=== PATIENT | male | born 1965 | race Caucasian/White ===

== ENCOUNTER → 2021-02-09 | Outpatient (CLI) | payer MEDICARE, OTHER ==
[~2021-02-09] MED LIST: AMOCLA875 PO; ASPI81CH PO; AZIT250 PO; BP MED PO; CEFD300 PO; CELE100 PO; CEPH500 PO; CIPR500 PO; CLOM50A PO; CRUTCH4 MISC; CYCL10 PO; HYDACE5 PO; LISI20 PO; MEDICAL MARIJUANA; MELO7.5 PO; METF500 PO; NAPR500 PO; NICO14TP TOP; Norco 10-325 T1 EACH PO; OLAN5; OXYACE5T PO; OXYC15ER PO; PARO20 PO; PIOG15 PO; POTCHL20ER PO; QUET100 PO; QUET200 PO; QUET25 PO; ROSU5 PO; RXCLIN PO; RXHYDACE PO; SILSUL1TC TOP; SITA50T2 PO; TELM20 PO; ZALE10; [UNRECOGNIZED DRUG - OTHER] PO; seroquel PO
== END | disposition home or self-care (01) ==
LOC: LAB SHORT 14:49 → LAB 14:49
DX: E11.9 Type 2 diabetes mellitus without complications (principal)
CPT/HCPCS: 82043

== ENCOUNTER → 2022-11-01 | Outpatient (CLI) | payer MEDICARE, OTHER ==
[2022-11-03 10:34] LABS: Stool Occult Bld Immuno 1 Negative (NEGATIVE)
== END | disposition home or self-care (01) ==
LOC: LAB SHORT 15:45
PROVIDERS: Student in an Organized Health Care Education/Training Program
DX: Z12.11 Encounter for screening for malignant neoplasm of colon (principal)
CPT/HCPCS: G0328

== ENCOUNTER → 2023-01-17 | Outpatient (CLI) | payer MEDICARE, OTHER | END | disposition home or self-care (01) | LOC: LAB SHORT 14:45 → LAB 14:45 | DX: L03.031 Cellulitis of right toe (principal) | CPT/HCPCS: 87070; 87075; 87106; 87205 ==

== ENCOUNTER 2023-02-13 08:09 | Day surgery (SDC) | payer MEDICARE, OTHER | END 2023-02-13 22:46 | disposition home or self-care (01) | LOC: WOUND 08:09 | DX: E11.621 Type 2 diabetes mellitus with foot ulcer (principal); L97.512 Non-pressure chronic ulcer of other part of right foot with fat layer exposed; E11.51 Type 2 diabetes mellitus with diabetic peripheral angiopathy without gangrene; E11.59 Type 2 diabetes mellitus with other circulatory complications; I10 Essential (primary) hypertension; E11.40 Type 2 diabetes mellitus with diabetic neuropathy, unspecified; Z88.0 Allergy status to penicillin; Z88.5 Allergy status to narcotic agent; Z87.891 Personal history of nicotine dependence | CPT/HCPCS: A9270; G0463 ==

== ENCOUNTER 2023-02-27 02:42 | Day surgery (SDC) | payer MEDICARE, OTHER | END 2023-02-27 22:48 | disposition home or self-care (01) | LOC: WOUND 02:42 | DX: E11.621 Type 2 diabetes mellitus with foot ulcer (principal); L97.512 Non-pressure chronic ulcer of other part of right foot with fat layer exposed; E11.51 Type 2 diabetes mellitus with diabetic peripheral angiopathy without gangrene; E11.59 Type 2 diabetes mellitus with other circulatory complications; E11.40 Type 2 diabetes mellitus with diabetic neuropathy, unspecified | CPT/HCPCS: A9270; G0463 ==

== ENCOUNTER 2023-03-06 02:49 | Day surgery (SDC) | payer MEDICARE, OTHER | END 2023-03-06 22:55 | disposition home or self-care (01) | LOC: WOUND 02:49 | DX: E11.621 Type 2 diabetes mellitus with foot ulcer (principal); L97.512 Non-pressure chronic ulcer of other part of right foot with fat layer exposed; E11.51 Type 2 diabetes mellitus with diabetic peripheral angiopathy without gangrene; E11.59 Type 2 diabetes mellitus with other circulatory complications; E11.40 Type 2 diabetes mellitus with diabetic neuropathy, unspecified | CPT/HCPCS: G0463 ==

== ENCOUNTER 2023-03-13 02:16 | Day surgery (SDC) | payer MEDICARE, OTHER | END 2023-03-13 22:46 | disposition home or self-care (01) | LOC: WOUND 02:16 | DX: E11.621 Type 2 diabetes mellitus with foot ulcer (principal); L97.512 Non-pressure chronic ulcer of other part of right foot with fat layer exposed; E11.51 Type 2 diabetes mellitus with diabetic peripheral angiopathy without gangrene | CPT/HCPCS: G0463 ==

== ENCOUNTER 2023-03-30 01:52 | Day surgery (SDC) | payer MEDICARE, OTHER | END 2023-03-30 22:57 | disposition home or self-care (01) | LOC: WOUND 01:52 | DX: E11.621 Type 2 diabetes mellitus with foot ulcer (principal); L97.512 Non-pressure chronic ulcer of other part of right foot with fat layer exposed; E11.51 Type 2 diabetes mellitus with diabetic peripheral angiopathy without gangrene; E11.59 Type 2 diabetes mellitus with other circulatory complications | CPT/HCPCS: G0463 ==

== ENCOUNTER 2023-04-11 00:41 | Day surgery (SDC) | payer MEDICARE, OTHER | END 2023-04-11 22:51 | disposition home or self-care (01) | LOC: WOUND 00:41 | DX: E11.621 Type 2 diabetes mellitus with foot ulcer (principal); L97.512 Non-pressure chronic ulcer of other part of right foot with fat layer exposed; E11.51 Type 2 diabetes mellitus with diabetic peripheral angiopathy without gangrene; E11.59 Type 2 diabetes mellitus with other circulatory complications | CPT/HCPCS: G0463 ==

== ENCOUNTER 2023-04-19 02:46 | Day surgery (SDC) | payer MEDICARE, OTHER | END 2023-04-19 23:30 | disposition home or self-care (01) | LOC: WOUND 02:46 | DX: E11.51 Type 2 diabetes mellitus with diabetic peripheral angiopathy without gangrene (principal); L98.492 Non-pressure chronic ulcer of skin of other sites with fat layer exposed; I70.25 Atherosclerosis of native arteries of other extremities with ulceration | CPT/HCPCS: A9270; G0463 ==

== ENCOUNTER 2023-05-03 03:39 | Day surgery (SDC) | payer MEDICARE, OTHER | END 2023-05-03 22:42 | disposition home or self-care (01) | LOC: WOUND | DX: E11.621 Type 2 diabetes mellitus with foot ulcer (principal); L97.512 Non-pressure chronic ulcer of other part of right foot with fat layer exposed; E11.51 Type 2 diabetes mellitus with diabetic peripheral angiopathy without gangrene; E11.59 Type 2 diabetes mellitus with other circulatory complications | CPT/HCPCS: G0463 ==

== ENCOUNTER 2023-08-01 02:11 | Day surgery (SDC) | payer MEDICARE, OTHER ==
[2023-08-02] MEDS ORDERED: METF500 PO (20:53)
[2023-08-02] MEDS ORDERED: ATOR40TA PO (20:53)
[2023-08-02] MEDS ORDERED: LISI20 PO (20:54)
[2023-08-02] MEDS ORDERED: Aspir 8181 MG PO (20:54)
[2023-08-02] MEDS ORDERED: GABA300 PO (20:55)
[2023-08-02] MEDS ORDERED: QUET300 PO (20:56)
[2023-08-02] MEDS ORDERED: CYCL10 PO (20:56)
== END 2023-08-01 23:00 | disposition home or self-care (01) ==
LOC: WOUND 02:11
DX: E11.621 Type 2 diabetes mellitus with foot ulcer (principal); L97.516 Non-pressure chronic ulcer of other part of right foot with bone involvement without evidence of necrosis; E11.51 Type 2 diabetes mellitus with diabetic peripheral angiopathy without gangrene; L97.512 Non-pressure chronic ulcer of other part of right foot with fat layer exposed; I73.9 Peripheral vascular disease, unspecified; M79.89 Other specified soft tissue disorders; I70.90 Unspecified atherosclerosis
CPT/HCPCS: 73630; A9270; G0463

== ENCOUNTER 2023-08-02 16:49 | Inpatient (IN) | payer MEDICARE, OTHER ==
[~2023-08-02] VITALS: Ht 170.2 cm; Wt 91.2 kg
[2023-08-02 18:06] LABS: BASOPHILS ABSOLUTE AUTO 0.08 K/mm3 (0.00-0.23); BASOPHILS PERCENT AUTO 1 % (0-2); EOSINOPHILS PERCENT AUTO 2 % (0-6); Hematocrit 36.7 % (37.0-53.0); Hemoglobin 12.1 g/dL (13.5-17.5); IMMATURE GRAN ABSOLUTE AUTO 0.06 K/mm3 (0.00-0.10); IMMATURE GRAN PERCENT AUTO 0 % (0-1); LYMPHOCYTES ABSOLUTE AUTO 2.43 K/mm3 (0.84-5.20); LYMPHOCYTES PERCENT AUTO 15 % (21-46); MONOCYTES ABSOLUTE AUTO 1.17 K/mm3 (0.16-1.47); MONOCYTES PERCENT AUTO 7 % (4-13); Mean Corpuscular HGB 29.8 pg (26.0-34.0); Mean Corpuscular Volume 90 fL (80-100); Mean Platelet Volume 9.9 fL (9.1-12.4); NEUTROPHILS ABSOLUTE AUTO 12.12 K/mm3 (1.96-9.15); NEUTROPHILS PERCENT AUTO 75 % (41-73); Platelet Count 364 K/mm3 (150-400); RDW Coefficient Variation 13.4 % (11.7-14.2); RDW Standard Deviation 44.9 fL (35.1-46.3); Red Blood Cell Count 4.06 M/mm3 (4.30-5.90); White Blood Cell Count 16.16 K/mm3 (4.00-11.30)
[2023-08-02 18:25] LABS: Albumin, Blood 2.6 g/dL (3.4-5.0); Albumin/Globulin Ratio 0.6 (0.8-1.8); Bilirubin, Total 0.3 mg/dL (0.1-1.0); Bun/Creatinine Ratio 13.6 (12.0-20.0); Calcium, Blood 8.7 mg/dL (8.5-10.1); Creatinine, Blood 1.62 mg/dL (0.60-1.20); Potassium, Blood 4.2 mmol/L (3.5-5.5); Total Protein, Blood 6.6 g/dL (6.4-8.2)
[2023-08-02] MEDS ORDERED: ATOR40TA PO (20:53)
[2023-08-02] MEDS ORDERED: METF500 PO (20:53)
[2023-08-02] MEDS ORDERED: Aspir 8181 MG PO (20:54)
[2023-08-02] MEDS ORDERED: LISI20 PO (20:54)
[2023-08-02] MEDS ORDERED: GABA300 PO (20:55)
[2023-08-02] MEDS ORDERED: CYCL10 PO (20:56)
[2023-08-02] MEDS ORDERED: QUET300 PO (20:56)
[2023-08-02 22:41] VITALS: BP 209/88
[2023-08-03] VITALS (16 sets, daily range): BP systolic 114–212; BP diastolic 70–100
--- NOTE | 2023-08-03 04:12 | NUR ---
SHIFT SUMMARY PT A&O X4, ADMITTED FROM THE ED DURING THE SHIFT. STARTED ON ABX-SEE EMAR. PT KEPT NPO, Q6 BS, LAST GLUCOSE 170 AT MIDNIGHT. PT REFUSED INSULIN ADMINISTRATION. PT BECAME NAUSEOUS ON WHEELCHAIR RIDE FROM THE ED. TREATED PER EMAR AND RESOLVED. PT COMPLAINTS OF PAIN IN THE RIGHT TOES/FOOT- TREATED PER EMAR. PHOTOS TAKEN OF NECROTIC TOE AND PLACED IN CHART. CURRENTLY INFUSING NS @75. PT REFUSES TO USE URINAL AND AMBULATES TO THE BATHROOM USING FFW. BED KEPT IN THE LOWEST POSITION WITH CALL LIGHT WITHIN REACH. PT DAUGHTER AT BEDSIDE
--- NOTE | 2023-08-03 15:07 | NUR ---
POST SURGICAL PROCEDURE; REPORT RECEIVED FROM RUDDY BARNARD. PT ARRIVED VIA GURNEY, AWAKE AND ALERT X 4. PT TRANSFERRED TO BED BY SLIDING FROM GURNEY TO BED. PT ABLE TO SLIDE HIMSELF. PT REPORTS "NO PAIN". PT STATES HE CAN FEEL GENTLE TOUCH TO HEEL AND EXPOSED TOES OF R FOOT. DRESSING IN PLACE IS CDI. PT EDUCATED ON WEIGHT BEARING STATUS, AND NEED TO ELEVATE LEG ABOVE HIP. END OF BED ELEVATED WITH UNDER BED BAR AND R LEG PROPPED ON PILLOWS. PT STATED HE WAS COMFORTABLE IN THIS POSITION. PT VU OF PRECAUTIONS IN PLACE. PT EDUCATED ON ADVANCING DIET SLOW. GAVE PT CRACKERS, ICE WATER AND GATORADE. PT URINATED IN URINAL WITH NO COMPLAINTS OF DIFFICULTY. PT VITALS TAKEN AND BP 212/87, HR 64. PT DENIES CP/PRESSURE/SOB. WILL RE-EVALUATE IN 30 MINUTES.
--- NOTE | 2023-08-03 17:46 | NUR ---
SHIFT SUMMARY: PT A/O X 4, PARTIAL WT BEARING TO R FOOT AT THIS TIME. PT IS PLEASANT WITH CARE. PT IS REFUSING INSULIN WHEN NEEDED. PT EDUCATED ON CONSEQUENCES OF HYPERGLYCEMIA. PT VU AND CONTINUED TO REFUSE INSULIN DESPITE EDUCATION STATING "I WON'T EVER TAKE INSULIN." REQUESTED PT TO LET ME KNOW IF HE CHANGES HIS MIND. PT HAS HAD ELEVATED SBP GREATER THAN 180'S. PT IS ASYMPTOMATIC. PRN HYDRALAZINE 10 MG GIVEN VIA IV WITH MINIMAL EFFECTIVENESS. PT STATED "MY BP AT HOME IS ALWAYS IN THE 190'S." DAUGHTER AT BEDSIDE CONFIRMED THIS. PT EDUCATED ON DANGERS OF HYPERTENSION. PT VU AND THEN STATED "I FEEL FINE." PT BEGAN FEELING THROBBING SENSATION IN R FOOT THIS EVENING AND PRN NORCO GIVEN FOR PAIN. R LEG ELEVATED ABOVE HIP ON PILLOWS PER ORDER. PT HAS BEEN COMPLIANT WITH KEEPING LEG ELEVATED. PT HAS NOT BEEN UP OOB YET SINCE HE CAME BACK FROM SURGERY. DRESSING CONTINUES TO BE CDI.
[2023-08-04 04:38] VITALS: BP 188/89
--- NOTE | 2023-08-04 04:47 | NUR ---
PATIENT A/OX4, UP WITH FWW AND 1 ASSIST. HEEL TOUCH WEIGHT BEARING PRECAUTIONS. R 2ND TOE AMUPTATION YESTERDAY, DRESSING REMAINS C/D/I. NEUROPATHY TO BLE. REPORTS ADEQUATE PAIN CONTROL WITH NORCO. NS INFUSING AT 75ML/HR. CBG 310 BEFORE BED, PATIENT REFUSING INSULIN. EDUCATED ABOUT THE IMPORTANCE OF GLUCOSE CONTROL FOR PROPER HEALING. B/P ELEVATED, HYDRALAZINE 10MG IV GIVEN X1 TO TREAT. PER PATIENT A SBP IN THE 180'S IS BASELINE FOR HIM. PATIENT PLEASANT AND ABLE TO MAKE NEEDS KNOWN. USING URINAL TO VOID. REPORTS RESTING WELL THROUGHOUT THIS SHIFT.
[2023-08-04 06:27] VITALS: BP 147/62
[2023-08-04 07:47] VITALS: BP 177/91
[2023-08-04 15:17] VITALS: BP 175/81
--- NOTE | 2023-08-04 16:13 | NUR ---
SHIFT SUMMARY Pt remains A&O X3. Right foot pain managed with PO meds. Right foot warm, drsg CDI. Voiding per urinal. Declines SS coverage, orders to give Metformin. Call light in reach. No needs id or verbalized at this time. Will continue to monitor this shift.
[2023-08-04 20:13] VITALS: BP 180/91
[2023-08-04 20:22] LABS: Creatinine, Blood 1.51 mg/dL (0.60-1.20); Vancomycin, Trough 21.6 ug/mL (5.0-10.0)
[2023-08-04 23:35] VITALS: BP 180/82
[2023-08-05] VITALS (7 sets, daily range): BP systolic 165–200; BP diastolic 76–103
--- NOTE | 2023-08-05 03:46 | NUR ---
SETTER MOLDING AND COREMAKING MACHINES SUMMARY BP ELEVATED, OTHERWISE VSS. RECEIVED ANTIHYPERTENSIVE PRN MED, WILL CONTINUE TO MONITOR IT. DRESSING OF RIGHT FOOT/TOE INTACT. NO NOTED DRAINAGE. RIGHT FOOT ELEVATED ON PILLOW. IV ANTIBIOTICS AND IVF INFUSING PER ORDERS, PAIN MEDS ADMIN FOR DISCOMFORT - SEE MAR FOR DETAILS. HAS BEEN RESING QUIETLY WITH FEW INTERRUPTIONS. WILL CONTINUE TO MONITOR. CALL LIGHT IN REACH.
--- NOTE | 2023-08-05 10:34 | NUR ---
Pt up to the bathroom to wash up with lens molder. C/O nausea, diaphoretic, dizzy. Ast back to bed. SBP 200. BS 210. Cool cloth given. Denies chest pain or any other sx. Dizziness, diaphoresis subsiding. Recheck sbp 194. Dr. Valente made aware.
[2023-08-05 12:42] LABS: Hematocrit 37.6 % (37.0-53.0); Hemoglobin 12.2 g/dL (13.5-17.5)
[2023-08-05 13:01] LABS: Bun/Creatinine Ratio 10.8 (12.0-20.0); Calcium, Blood 8.3 mg/dL (8.5-10.1); Creatinine, Blood 1.57 mg/dL (0.60-1.20); Potassium, Blood 3.3 mmol/L (3.5-5.5)
--- NOTE | 2023-08-05 16:21 | NUR ---
SHIFT SUMMARY: Pt remains A&OX3 this shift. BP remains elevated, new po Norvasc given this am along with IV Hydralazine. SR/ST on monitor. Resp even nonlabored on RA. Voiding per urinal. No further episodes of dizziness, diaphoresis. Pt remained in bed rest of shift. Will continue to monitor this shift.
--- NOTE | 2023-08-06 03:38 | NUR ---
SHIFT SUMMARY PT A&O X4, COOPERATIVE WITH CARE. PT IS POST OP FROM A RT 2ND DIGIT SURGICAL AMPUTATION. RT FOOT IS ELEVATED ABOVE THE HIPS ON A PILLOW PER DR ORDER. PT IS 50% WEIGHT BEARING HEEL TOUCH ON RIGHT FOOT. DID NOT GET OOB DURING THIS SHIFT. DRESSING IS C/D/I. NO NOTED DRAINAGE. PT REPORTS PAIN IN RIGHT FOOT/TOES-TREATED PER EMAR. TELEMETRY: SR @75, DENIES ANY CP OR PRESSURE. BS AT HS 203. CALL LIGHT WITHIN REACH AND BED KEPT IN THE LOWEST POSITION. PT CALLS APPROPRIATELY FOR NEEDS.
[2023-08-06 03:58] VITALS: BP 175/84
[2023-08-06 06:09] LABS: Calcium, Blood 8.2 mg/dL (8.5-10.1); Creatinine, Blood 1.54 mg/dL (0.60-1.20); Potassium, Blood 3.6 mmol/L (3.5-5.5)
[2023-08-06 07:58] VITALS: BP 189/85
[2023-08-06] MEDS ORDERED: Norco 5-325 Ta1 EACH PO (13:27)
[2023-08-06] MEDS ORDERED: AMLO10 PO (13:27)
[2023-08-06] MEDS ORDERED: DOXY100 PO (13:28)
--- NOTE | 2023-08-06 15:11 | NUR ---
DISCHARGE PT DISCHARGED AT 1503. PT EDUCATED ON FOLLOW UP INSTRUCTIONS, NEW MEDS, AND DM2 MANAGEMENT. PT STATES HE UNDERSTANDS AND REQUIRED NO FURTHER INSTRUCTION. IV REMOVED & INTACT. NO OTHER ACUTE CHANGES IN ASSESSMENT AT THIS TIME. PT WHEELED OUT BY CHAYO. HARD SCRIPTS IN DC PACKET.
== END 2023-08-06 15:05 | disposition home health service (06) | DRG 617 ==
LOC: ER 16:49 → MEDS 21:37
PROVIDERS: Internal Medicine; Nurse Practitioner Acute Care; Physician Assistant; Podiatrist; ADMIT Internal Medicine
PROC: 0Y6R0Z1 Detachment at Right 2nd Toe, High, Open Approach (ICD-10-PCS; principal; 2023-08-03 11:45)
DX: E11.69 Type 2 diabetes mellitus with other specified complication (principal); E11.52 Type 2 diabetes mellitus with diabetic peripheral angiopathy with gangrene; I96 Gangrene, not elsewhere classified; M86.171 Other acute osteomyelitis, right ankle and foot; L03.115 Cellulitis of right lower limb; E11.621 Type 2 diabetes mellitus with foot ulcer; F31.9 Bipolar disorder, unspecified; E11.22 Type 2 diabetes mellitus with diabetic chronic kidney disease; F25.9 Schizoaffective disorder, unspecified; E11.42 Type 2 diabetes mellitus with diabetic polyneuropathy; N18.30 Chronic kidney disease, stage 3 unspecified; L97.514 Non-pressure chronic ulcer of other part of right foot with necrosis of bone; F15.11 Other stimulant abuse, in remission; I12.9 Hypertensive chronic kidney disease with stage 1 through stage 4 chronic kidney disease, or unspecified chronic kidney disease; Z98.890 Other specified postprocedural states; Z88.5 Allergy status to narcotic agent; Z88.0 Allergy status to penicillin; Z79.82 Long term (current) use of aspirin; Z79.84 Long term (current) use of oral hypoglycemic drugs; Z79.811 Long term (current) use of aromatase inhibitors; Z79.899 Other long term (current) drug therapy; Z87.891 Personal history of nicotine dependence
CPT/HCPCS: 36415; 73660; 80048; 80053; 80202; 82565; 82947; 85014; 85018; 85025; 87040; 88305; 88311; 93005; 93010; 93971; 96374; 96375; 97110; 97116; 97161; 97165; 97530; 99284-25; A9270; J0360; J0696; J1100; J1644; J1650; J2001; J2250; J2270; J2405; J2704; J3010; J3370; J7030; J7050; J7120

== ENCOUNTER 2023-10-11 09:03 | Day surgery (SDC) | payer MEDICARE, OTHER ==
[~2023-10-11] VITALS: Ht 170.2 cm; Wt 93.7 kg
[2023-10-11] VITALS (10 sets, daily range): BP systolic 89–189; BP diastolic 45–153
[~2023-10-11 09:03] MED LIST changes: +AMLO10 PO; +ATOR40TA PO; +Aspir 8181 MG PO; +DOXY100 PO; +GABA300 PO; +Norco 5-325 Ta1 EACH PO; +QUET300 PO
[2023-10-11] MEDS ORDERED: TIZA4 PO (09:31)
[2023-10-11] MEDS ORDERED: MELO7.5 PO (09:32)
--- NOTE | 2023-10-11 13:14 | NUR ---
Pt arrives back from lab at this time. Access to Right groin wnl, pt vss upon arrival to unit. bed tilted to allow pt to remain supine, fluids and lunch tray provided with assistance.
--- NOTE | 2023-10-11 13:46 | NUR ---
lissette pyle to call pt's family to schedule follow-up appointment. pt aware.
--- NOTE | 2023-10-11 14:22 | NUR ---
no bleeding noted to femoral site. site soft and mildly tender per pt.
--- NOTE | 2023-10-11 14:35 | NUR ---
pt boosted up in bed and bed sat up. site soft and no bleeding noted.
--- NOTE | 2023-10-11 15:00 | NUR ---
PT ASSISTED TO DANGLE AT BEDSIDE. TOLERATED WELL, PT ABLE TO AMBULATE TO THE BATHROOM WITH OUT DIFFICULTY. GROIN SITE WNL, NO ACUTE CHANGES, NO HEMATOMA AND NO SWELLING AT THIS TIME. PT. IV REMOVED, CATHETER INTACT, PT ABLE TO GET SELF DRESSED. VSS. GROIN SITE ASSESSED AFTER PT WAS DRESSED AND REMAINS WNL. PLANS FOR DC WITH DAUGHTER.
--- NOTE | 2023-10-11 15:38 | NUR ---
DISCHARGE INSTRUCTIONS REVIEWED IN DETAIL WITH PT. NO FURTHER QUESTIONS AT THIS TIME. PT CONSENTED FOR PROCEDURE ON 10/25/[address] MCCRARY. PT. TO BE TAKEN TO EXIT VIA WHEELCHAIR, PT DAUGHTER TO TAKE PT HOME.
== END 2023-10-11 15:50 | disposition home or self-care (01) ==
LOC: MHTC 09:03
DX: E11.51 Type 2 diabetes mellitus with diabetic peripheral angiopathy without gangrene (principal); I70.223 Atherosclerosis of native arteries of extremities with rest pain, bilateral legs; E11.621 Type 2 diabetes mellitus with foot ulcer; L97.512 Non-pressure chronic ulcer of other part of right foot with fat layer exposed; I10 Essential (primary) hypertension; Z87.891 Personal history of nicotine dependence; Z88.5 Allergy status to narcotic agent; Z88.0 Allergy status to penicillin; Z88.8 Allergy status to other drugs, medicaments and biological substances; Z79.84 Long term (current) use of oral hypoglycemic drugs; Z79.899 Other long term (current) drug therapy
CPT/HCPCS: 37232; 75625; 75716; 75774; 76937; 85347; 99152; 99153; C1725; C1760; C1769; C1887; C1894; C9772; J1644; J2250; J3010; J7030; J7050; Q9967

== ENCOUNTER 2023-10-25 09:00 | Day surgery (SDC) | payer MEDICARE, OTHER ==
[2023-10-25] VITALS (11 sets, daily range): BP systolic 123–190; BP diastolic 76–161
[~2023-10-25] VITALS: Ht 170.2 cm; Wt 93.7 kg
[~2023-10-25 09:00] MED LIST changes: +Januvia50 MG PO; +TIZA4 PO
--- NOTE | 2023-10-25 14:15 | NUR ---
1300 FENTANYL 50 MCG IV GIVEN FOR RIGHT GROIN DISCOMFPRT. FEMSTOP APPLIED FOR ENLARGED HEMATOMA AT THE RIGHT GROIN. MANUAL PRESSURE WAS HELD FOR 15 MINUTES BY MARISA LIRIANO RN WITH EXTREME PAIN TO THE PATIENT. NO PULSITILE NOTED. BUT LARGE BASEBALL SIZE AREA NOTED BELOW THE STICK SITE. CHG DRESSING REMAINS IN PLACE, NO BLEEDING NOTED FROM THE SITE.
--- NOTE | 2023-10-25 14:20 | NUR ---
1336 FENTANYL 50 MCG IV GIVEN FOR CONTINUED PAIN AT THE RIGHT GROIN SITE. FEMSTOP READJUSTED. PATIENT TOLERATED WELL.
--- NOTE | 2023-10-25 15:45 | NUR ---
1445 FEMSTOP REMOVED AND RIGHT GROIN SITE SOFT. DR. MCCRARY UPDATED AND CLEARED PATIENT FOR DISCHARGED HOME WITH FOLLOW UP IN THE OFFICE.
--- NOTE | 2023-10-25 15:52 | NUR ---
1510 PIV REMOVED, CATH TIP INTACT AND PRESSURE DRESSING APPLIED TO THE RIGHT HAND. VVS. PATIENT DRESSED SELF. ALL BELONGINGS GATHERED AND REVEIWED DISCHARGE INSTRUCTIONS. COPIES GIVEN TO PATIENT.
--- NOTE | 2023-10-25 16:07 | NUR ---
1605 PATIENT DISCHARGE HOME VIA WHEELCHAIR TO CAR WITH DAUGHTER TOUCH UP PAINTER HAND.
== END 2023-10-25 16:16 | disposition home or self-care (01) ==
LOC: MHTC 09:00
DX: E11.51 Type 2 diabetes mellitus with diabetic peripheral angiopathy without gangrene (principal); I70.223 Atherosclerosis of native arteries of extremities with rest pain, bilateral legs; E11.621 Type 2 diabetes mellitus with foot ulcer; L97.512 Non-pressure chronic ulcer of other part of right foot with fat layer exposed; I10 Essential (primary) hypertension; Z87.891 Personal history of nicotine dependence; Z88.5 Allergy status to narcotic agent; Z88.0 Allergy status to penicillin; Z88.8 Allergy status to other drugs, medicaments and biological substances; Z79.82 Long term (current) use of aspirin; Z79.84 Long term (current) use of oral hypoglycemic drugs; Z79.899 Other long term (current) drug therapy
CPT/HCPCS: 37224; 37228; 37232; 75625; 75716; 75774; 76937; 99152; 99153; C1725; C1760; C1769; C1887; C1894; J1644; J2250; J3010; J7030; J7050; Q9967

== ENCOUNTER 2023-11-09 13:29 | Inpatient (IN) | payer MEDICARE, OTHER ==
[~2023-11-09] VITALS: Ht 167.6 cm; Wt 82.1 kg
[2023-11-09 13:59] LABS: BASOPHILS ABSOLUTE AUTO 0.06 K/mm3 (0.00-0.23); BASOPHILS PERCENT AUTO 0 % (0-2); EOSINOPHILS ABSOLUTE AUTO 0.03 K/mm3 (0.00-0.68); EOSINOPHILS PERCENT AUTO 0 % (0-6); Hematocrit 35.8 % (37.0-53.0); Hemoglobin 11.3 g/dL (13.5-17.5); IMMATURE GRAN ABSOLUTE AUTO 0.09 K/mm3 (0.00-0.10); IMMATURE GRAN PERCENT AUTO 1 % (0-1); LYMPHOCYTES ABSOLUTE AUTO 2.39 K/mm3 (0.84-5.20); LYMPHOCYTES PERCENT AUTO 13 % (21-46); MONOCYTES ABSOLUTE AUTO 0.79 K/mm3 (0.16-1.47); MONOCYTES PERCENT AUTO 4 % (4-13); Mean Corpuscular HGB Conc 31.6 g/dL (31.5-36.5); Mean Corpuscular Volume 98 fL (80-100); Mean Platelet Volume 10.4 fL (9.1-12.4); NEUTROPHILS ABSOLUTE AUTO 15.45 K/mm3 (1.96-9.15); NEUTROPHILS PERCENT AUTO 82 % (41-73); NRBC ABSOLUTE 0.02 K/mm3 (0.00-0.02); NRBC Auto 0.1 /100 WBC (0.0-0.2); Platelet Count 380 K/mm3 (150-400); RDW Coefficient Variation 17.1 % (11.7-14.2); RDW Standard Deviation 61.8 fL (35.1-46.3); Red Blood Cell Count 3.65 M/mm3 (4.30-5.90); White Blood Cell Count 18.81 K/mm3 (4.00-11.30)
[2023-11-09 14:18] LABS: Alanine Aminotransfer (ALT/SGP 18 U/L (12-78); Albumin/Globulin Ratio 0.9 (0.8-1.8); Alk Phos 58 U/L (50-136); Anion Gap 7 mmol/L (6-16); Aspartate Aminotrans (AST/SGOT 17 U/L (12-37); Bilirubin, Total 0.5 mg/dL (0.1-1.0); Blood Urea Nitrogen 63 mg/dL (8-24); Bun/Creatinine Ratio 28.1 (12.0-20.0); C-REACTIVE PROTEIN, EXT RANGE <0.290 mg/dL (0.000-0.300); CO2, Blood 17 mmol/L (21-32); Calcium, Blood 8.8 mg/dL (8.5-10.1); Chloride, Blood 116 mmol/L (98-108); Creatinine, Blood 2.24 mg/dL (0.60-1.20); Globulin, Blood 3.4 g/dL (2.2-4.0); Glomerular Filtration Rate 33 (60-); Glucose, Blood 233 mg/dL (70-99); Potassium, Blood 5.8 mmol/L (3.5-5.5); Sodium, Blood 140 mmol/L (136-145); Total Protein, Blood 6.4 g/dL (6.4-8.2)
[2023-11-09 18:08] VITALS: BP 148/76
--- NOTE | 2023-11-09 18:49 | NUR ---
ER ADMIT Patient admitted for diabetic ulcer infection and LAKEISHA. Right foot, middle toe previsouly amputated, toes painted with betadine, wrapped with guaze, and CHUCK wrap. Med rec complete. Pt has amputation planned for sunday with Dr. Gao. IV ABX infusing. CBG at 1800 was 102. No SSI needed. VSS. Will continue plan of care.
--- NOTE | 2023-11-09 19:05 | NUR ---
DECLINED SKIN CHECK. RN explained [facility] policy and 2-RN skin check on admission. Patient reported he has a bruise on his right groin r/t recent angiogram. Right foot wrapped with guaze, s/p amputation of II toe on right foot. Toe III has ulcer with eschar, and eschar on toe V. Left foot, CDI, no abnormalities noted. Patient declined to look at his body to do a skin check, denied any other skin issues.
[2023-11-09 19:42] VITALS: BP 128/79
--- NOTE | 2023-11-10 03:21 | NUR ---
SHIFT SUMMERY, PT RESTING IN BED. PT EARLIER THIS NIGHT C/O TIFFANY COLD WARM BLANKETS FROM WARMER APPLYED. PT STILL C/O BEING VERY COLD. K PAD GIVEN TO PT . PT STATED HE WAS WARM AT THIS TIME. PT SEEMED TO BE SLEEPING ON AND OFF OCCASIONALY WAKING THEN GOING BACK TO SLEEP. CALL LIGHT IN REACH.
[2023-11-10 04:53] VITALS: BP 135/76
[2023-11-10 05:55] LABS: BASOPHILS ABSOLUTE AUTO 0.08 K/mm3 (0.00-0.23); BASOPHILS PERCENT AUTO 1 % (0-2); EOSINOPHILS ABSOLUTE AUTO 0.11 K/mm3 (0.00-0.68); EOSINOPHILS PERCENT AUTO 1 % (0-6); Hematocrit 31.1 % (37.0-53.0); Hemoglobin 9.8 g/dL (13.5-17.5); IMMATURE GRAN ABSOLUTE AUTO 0.05 K/mm3 (0.00-0.10); IMMATURE GRAN PERCENT AUTO 0 % (0-1); LYMPHOCYTES ABSOLUTE AUTO 2.66 K/mm3 (0.84-5.20); LYMPHOCYTES PERCENT AUTO 19 % (21-46); MONOCYTES ABSOLUTE AUTO 0.94 K/mm3 (0.16-1.47); MONOCYTES PERCENT AUTO 7 % (4-13); Mean Corpuscular HGB 30.3 pg (26.0-34.0); Mean Corpuscular HGB Conc 31.5 g/dL (31.5-36.5); Mean Corpuscular Volume 96 fL (80-100); Mean Platelet Volume 10.6 fL (9.1-12.4); NEUTROPHILS ABSOLUTE AUTO 10.14 K/mm3 (1.96-9.15); NEUTROPHILS PERCENT AUTO 73 % (41-73); Platelet Count 313 K/mm3 (150-400); RDW Coefficient Variation 17.1 % (11.7-14.2); RDW Standard Deviation 61.1 fL (35.1-46.3); Red Blood Cell Count 3.23 M/mm3 (4.30-5.90); White Blood Cell Count 13.98 K/mm3 (4.00-11.30)
[2023-11-10 06:17] LABS: Albumin, Blood 2.5 g/dL (3.4-5.0); Albumin/Globulin Ratio 0.9 (0.8-1.8); Bilirubin, Total 0.3 mg/dL (0.1-1.0); Bun/Creatinine Ratio 28.1 (12.0-20.0); Calcium, Blood 8.2 mg/dL (8.5-10.1); Creatinine, Blood 1.96 mg/dL (0.60-1.20); Globulin, Blood 2.8 g/dL (2.2-4.0); Potassium, Blood 5.4 mmol/L (3.5-5.5); Total Protein, Blood 5.3 g/dL (6.4-8.2)
[2023-11-10 07:56] VITALS: BP 145/78
[2023-11-10 15:49] VITALS: BP 145/90
--- NOTE | 2023-11-10 17:24 | NUR ---
DAYSHIFT SUMMARY Patient alert & oriented x4, patient reporting severe pain in right foot, tender to the touch. Foot wrapped with guaze & CHUCK wrap, dressed in ER. Patient stand pivot to BSC. CBGs WNL, no Humalin SSI needed. Vitals stable. Normal Saline infusing continously. Plan for surgery on sunday. Will continue plan of care.
[2023-11-10 19:35] VITALS: BP 136/79
[2023-11-11 03:19] VITALS: BP 128/77
[2023-11-11 05:51] LABS: BASOPHILS ABSOLUTE AUTO 0.06 K/mm3 (0.00-0.23); BASOPHILS PERCENT AUTO 0 % (0-2); EOSINOPHILS ABSOLUTE AUTO 0.04 K/mm3 (0.00-0.68); EOSINOPHILS PERCENT AUTO 0 % (0-6); Hematocrit 31.8 % (37.0-53.0); Hemoglobin 10.2 g/dL (13.5-17.5); IMMATURE GRAN ABSOLUTE AUTO 0.05 K/mm3 (0.00-0.10); IMMATURE GRAN PERCENT AUTO 0 % (0-1); LYMPHOCYTES ABSOLUTE AUTO 2.25 K/mm3 (0.84-5.20); LYMPHOCYTES PERCENT AUTO 17 % (21-46); MONOCYTES ABSOLUTE AUTO 0.97 K/mm3 (0.16-1.47); MONOCYTES PERCENT AUTO 7 % (4-13); Mean Corpuscular HGB 30.9 pg (26.0-34.0); Mean Corpuscular HGB Conc 32.1 g/dL (31.5-36.5); Mean Corpuscular Volume 96 fL (80-100); Mean Platelet Volume 10.6 fL (9.1-12.4); NEUTROPHILS PERCENT AUTO 75 % (41-73); Platelet Count 297 K/mm3 (150-400); RDW Coefficient Variation 17.2 % (11.7-14.2); RDW Standard Deviation 60.9 fL (35.1-46.3); White Blood Cell Count 13.67 K/mm3 (4.00-11.30)
[2023-11-11 06:21] LABS: Bun/Creatinine Ratio 22.2 (12.0-20.0); Calcium, Blood 8.4 mg/dL (8.5-10.1); Creatinine, Blood 1.85 mg/dL (0.60-1.20); Potassium, Blood 5.5 mmol/L (3.5-5.5)
[2023-11-11 07:18] VITALS: BP 132/79
--- NOTE | 2023-11-11 07:20 | NUR ---
SHIFT SUMMARY NOC PT A/O X 4. PLEASANT AND COOPERATIVE WITH CARE. REPORTED SEVERE PAIN IN R FOOT AND MEDICATED PER EMAR WITH DESIRED EFFECT. PT R FOOT IS WRAPPED IN GAUZE AND CHUCK WRAP. PT IS ABLE TO INDEPENDENTLY STAND PIVOT TO BSC. PT CBG 151 AND CNI. VSS. CONTINUOS INFUSION NS @ 75 ML/HR. PT HAS SURGERY SCHEDULED FOR SUNDAY FOR TRANSMETARSAL AMPUTATION. PT IS CURRENTLY RESTING WITH BED IN LOWEST POSITION, AND CALL LIGHT WITHIN REACH.
[2023-11-11 15:19] VITALS: BP 141/81
[2023-11-11 19:18] VITALS: BP 160/96
--- NOTE | 2023-11-11 20:06 | NUR ---
SHIFT SUMMARY: ARACELIS IS A&OX4. VSS, BP ELEVATED TOWARD THE END OF THE SHIFT SHORTLY AFTER PT HAD AN EPISODE OF EMESIS. PT REPORTS ADEQUATE PAIN CONTROL WITH 5 MG OF OXYCODONE. HE DID COMPLAIN OF NAUSEA EARLY IN THE SHIFT, BUT PT REPORTED IMPROVEMENT AFTER ADMINISTRATION OF SODIUM BICARB. PT IS INDEPENDENT TO THE BSC. DRESSING TO RIGHT FOOT C/D&I. IV TO L WRIST PATENT. HE IS LYING IN BED WITH THE CALL LIGHT IN REACH. REPORT WAS GIVEN TO ETCHER APPRENTICE RN.
[2023-11-12 04:25] VITALS: BP 149/106
[2023-11-12 05:05] LABS: BASOPHILS ABSOLUTE AUTO 0.06 K/mm3 (0.00-0.23); BASOPHILS PERCENT AUTO 0 % (0-2); EOSINOPHILS ABSOLUTE AUTO 0.03 K/mm3 (0.00-0.68); EOSINOPHILS PERCENT AUTO 0 % (0-6); Hematocrit 32.4 % (37.0-53.0); Hemoglobin 10.7 g/dL (13.5-17.5); IMMATURE GRAN ABSOLUTE AUTO 0.07 K/mm3 (0.00-0.10); IMMATURE GRAN PERCENT AUTO 1 % (0-1); LYMPHOCYTES ABSOLUTE AUTO 2.41 K/mm3 (0.84-5.20); LYMPHOCYTES PERCENT AUTO 16 % (21-46); MONOCYTES PERCENT AUTO 8 % (4-13); Mean Corpuscular HGB 31.1 pg (26.0-34.0); Mean Corpuscular Volume 94 fL (80-100); Mean Platelet Volume 10.6 fL (9.1-12.4); NEUTROPHILS ABSOLUTE AUTO 11.08 K/mm3 (1.96-9.15); NEUTROPHILS PERCENT AUTO 75 % (41-73); Platelet Count 291 K/mm3 (150-400); RDW Coefficient Variation 16.9 % (11.7-14.2); RDW Standard Deviation 58.5 fL (35.1-46.3); Red Blood Cell Count 3.44 M/mm3 (4.30-5.90); White Blood Cell Count 14.75 K/mm3 (4.00-11.30)
[2023-11-12 05:30] LABS: Bun/Creatinine Ratio 19.1 (12.0-20.0); Calcium, Blood 8.6 mg/dL (8.5-10.1); Creatinine, Blood 1.73 mg/dL (0.60-1.20)
[2023-11-12 07:54] VITALS: BP 159/83
--- NOTE | 2023-11-12 08:14 | NUR ---
SHIFT SUMMARY PT IS A&OX4, PLEASANT, FLAT AFFECT. VSS, HYPERTENSIVE, ON ROOM AIR. DENIES PAIN. HAD SOME N/V, TOO SOON FOR MORE ZOFRAN, DIDN'T WANT ME TO CALL DR TO ASK FOR SOMETHING MORE. NPO AFTER MIDNIGHT FOR SURGERY TODAY. DRESSING TO RIGHT FOOT C/D/I. INDEPENDENT TO BSC WITH A STAND PIVOT. PT STATED LAST BM WAS ON 12-14, REFUSED SCHEDULED BOWEL MEDS BECAUSE OF NAUSEA. BED IN LOWEST POSITION, CALL LIGHT WITHIN REACH. FIRE SAFETY CHECKS COMPLETED
[2023-11-12 16:21] VITALS: BP 142/85
--- NOTE | 2023-11-12 16:26 | NUR ---
NO ACUTE CHANGES PT IS AOX4 AND COOPERATIVE OF CARE. PT WAS NOT ABLE TO HAVE PROCEDURE ON R FOOT TODAY. PT WILL BE NPO AT MIDNIGHT TONIGHT AND PROCEDURE HAS BEEN RESCHEDULED FOR TOMORROW. CALL LIGHT IS WITHIN REACH WILL CONTINUE TO MONITOR.
[2023-11-12 19:20] VITALS: BP 150/93
[2023-11-13] VITALS (19 sets, daily range): BP systolic 132–188; BP diastolic 68–105
[2023-11-13 05:33] LABS: BASOPHILS ABSOLUTE AUTO 0.05 K/mm3 (0.00-0.23); BASOPHILS PERCENT AUTO 0 % (0-2); EOSINOPHILS PERCENT AUTO 1 % (0-6); Hematocrit 30.1 % (37.0-53.0); Hemoglobin 9.7 g/dL (13.5-17.5); IMMATURE GRAN ABSOLUTE AUTO 0.04 K/mm3 (0.00-0.10); IMMATURE GRAN PERCENT AUTO 0 % (0-1); LYMPHOCYTES ABSOLUTE AUTO 2.39 K/mm3 (0.84-5.20); LYMPHOCYTES PERCENT AUTO 21 % (21-46); MONOCYTES ABSOLUTE AUTO 0.96 K/mm3 (0.16-1.47); MONOCYTES PERCENT AUTO 8 % (4-13); Mean Corpuscular HGB 30.4 pg (26.0-34.0); Mean Corpuscular HGB Conc 32.2 g/dL (31.5-36.5); Mean Corpuscular Volume 94 fL (80-100); Mean Platelet Volume 10.6 fL (9.1-12.4); NEUTROPHILS ABSOLUTE AUTO 8.03 K/mm3 (1.96-9.15); NEUTROPHILS PERCENT AUTO 69 % (41-73); Platelet Count 256 K/mm3 (150-400); RDW Standard Deviation 58.6 fL (35.1-46.3); Red Blood Cell Count 3.19 M/mm3 (4.30-5.90); White Blood Cell Count 11.57 K/mm3 (4.00-11.30)
[2023-11-13 06:04] LABS: Bun/Creatinine Ratio 17.1 (12.0-20.0); Calcium, Blood 8.4 mg/dL (8.5-10.1); Creatinine, Blood 1.7 mg/dL (0.60-1.20); Potassium, Blood 4.9 mmol/L (3.5-5.5)
--- NOTE | 2023-11-13 07:07 | NUR ---
SHIFT SUMMARY PT IS A&OX4, VSS, ELEVATED BP ON ROOM AIR. DENIES PAIN. TOLERATING AN ADA DIET, NO N/V, NPO AFTER MN FOR SURGERY. VOIDING IN BSC, INDEPENDENTLY. NO BM THIS SHIFT. RLE DRESSING C/D/I. BED IN LOWEST POSITION, CALL LIGHT WITHIN REACH. FIRE SAFETY CHECKS COMPLETED
--- NOTE | 2023-11-13 18:33 | NUR ---
PT AOX4 AND COOPERATIVE OF CARE ALL DAY. PT LEFT 1800 TO HAVE AMBUTAITON TO R FOOT PREFORMED. PT HAS BEE NPO ALL DAY. TREATED FOR PAIN PER EMAR. STICK ROLLER TO BE COMMING ON.
[2023-11-14 00:22] VITALS: BP 135/89
[2023-11-14 01:39] VITALS: BP 142/89
[2023-11-14 05:53] LABS: BASOPHILS ABSOLUTE AUTO 0.01 K/mm3 (0.00-0.23); BASOPHILS PERCENT AUTO 0 % (0-2); EOSINOPHILS PERCENT AUTO 0 % (0-6); Hematocrit 28.8 % (37.0-53.0); Hemoglobin 9.5 g/dL (13.5-17.5); IMMATURE GRAN ABSOLUTE AUTO 0.05 K/mm3 (0.00-0.10); IMMATURE GRAN PERCENT AUTO 0 % (0-1); LYMPHOCYTES ABSOLUTE AUTO 1.06 K/mm3 (0.84-5.20); LYMPHOCYTES PERCENT AUTO 9 % (21-46); MONOCYTES ABSOLUTE AUTO 0.65 K/mm3 (0.16-1.47); MONOCYTES PERCENT AUTO 5 % (4-13); Mean Corpuscular HGB 30.8 pg (26.0-34.0); Mean Corpuscular Volume 94 fL (80-100); Mean Platelet Volume 11.1 fL (9.1-12.4); NEUTROPHILS ABSOLUTE AUTO 10.38 K/mm3 (1.96-9.15); NEUTROPHILS PERCENT AUTO 86 % (41-73); Platelet Count 240 K/mm3 (150-400); RDW Coefficient Variation 16.8 % (11.7-14.2); RDW Standard Deviation 57.6 fL (35.1-46.3); Red Blood Cell Count 3.08 M/mm3 (4.30-5.90); White Blood Cell Count 12.15 K/mm3 (4.00-11.30)
[2023-11-14 06:17] LABS: Bun/Creatinine Ratio 17.2 (12.0-20.0); Calcium, Blood 8.3 mg/dL (8.5-10.1); Creatinine, Blood 1.57 mg/dL (0.60-1.20)
[2023-11-14 07:53] VITALS: BP 128/78
--- NOTE | 2023-11-14 08:00 | NUR ---
SHIFT SUMMARY PT IS A&OX4, VSS WITH ELEVATED BP ON ROOM AIR. PT ARRIVED BACK TO HIS ROOM FROM SURGERY AT 2049. ARACELIS TOLERATED THE TRANSMETATARSAL AMPUTATION ON THE RIGHT. MINIMAL PAIN, BUT VERY NAUSEATED. ALEJO DRAIN WITH SMALL AMOUNT OF SANGUINEOUS DRAINAGE. SUREPRESS WRAP C/D/I. VOIDING SMALL AMOUNTS INDEPENDENTLY IN URINAL. NO BM SINCE 11-08-23. TOLERATING AN ADA DIET WITH SOME SNACKS LATER IN THE NOC. MEDICATED FOR PAIN 5/10 IN R FOOT, AND HAVING SOME PHANTOM PAIN. BED IN LOWEST POSITION, CALL LIGHT WITHIN REACH. FIRE SAFETY CHECKS COMPLETED
--- NOTE | 2023-11-14 10:13 | NUR ---
RN NOTE MR WALLACE HAD BLOOD GLUCOSE OF 202 BEFORE BREAKFAST THIS MORNING. HE ORIGINALLY REFUSED INSULIN. EDUCATED ON REASONS THAT INSULIN IS IMPORTANT AND BENEFITS FOR WOUND HEALING. WHEN HE DISCUSSED THIS WITH DR MIDDLETON HE AGREED TO TAKE INSULIN DOSES AND SAID HE UNDERSTANDS THE RATIONALE. R FOOT DRESSING C,D,I. BLOODY OUTPUT TO ALEJO DRAIN WITH SUCTION MAINTAINED. PAIN CONTROLLED AT 4/10 THIS AM.
--- NOTE | 2023-11-14 15:25 | NUR ---
SHIFT SUMMARY MR WALLACE HAS R FOOT ELEVATED ON PILLOWS WHILE UP IN RECLINER. NON WEIGHT BEARING 2 PERSON ASSIST TO PIVOT INTO RECLINER AND THEN WORKED WITH PHYSICAL THERAPY. MR WALLACE SAID THAT HE WILL AGREE TO GO TO [facility] AFTER DISCHARGE FOR REHAB. PAIN CONTROLLED WITH PO MEDICATIONS. DENIES ANY SOB OR CHEST PAIN. CALL LIGHT IN REACH.
[2023-11-14 16:26] VITALS: BP 138/89
--- NOTE | 2023-11-14 18:01 | NUR ---
RN NOTE INCONTINENCE OF LIQUID STOOL X [address] FUNG NOTIFIED AND CDIFF TESTING ORDERED. BUTTOCKS EXCORIATED AND FRIABLE. CLEANSED AND CREAMS APPLIED.
[2023-11-14 20:25] VITALS: BP 168/87
[2023-11-15 02:21] VITALS: BP 162/86
[2023-11-15 04:58] LABS: BASOPHILS ABSOLUTE AUTO 0.02 K/mm3 (0.00-0.23); BASOPHILS PERCENT AUTO 0 % (0-2); EOSINOPHILS ABSOLUTE AUTO 0.07 K/mm3 (0.00-0.68); EOSINOPHILS PERCENT AUTO 1 % (0-6); Hematocrit 27.4 % (37.0-53.0); Hemoglobin 8.9 g/dL (13.5-17.5); IMMATURE GRAN ABSOLUTE AUTO 0.04 K/mm3 (0.00-0.10); IMMATURE GRAN PERCENT AUTO 0 % (0-1); LYMPHOCYTES ABSOLUTE AUTO 2.85 K/mm3 (0.84-5.20); LYMPHOCYTES PERCENT AUTO 27 % (21-46); MONOCYTES ABSOLUTE AUTO 0.91 K/mm3 (0.16-1.47); MONOCYTES PERCENT AUTO 9 % (4-13); Mean Corpuscular HGB 30.3 pg (26.0-34.0); Mean Corpuscular HGB Conc 32.5 g/dL (31.5-36.5); Mean Corpuscular Volume 93 fL (80-100); Mean Platelet Volume 10.5 fL (9.1-12.4); NEUTROPHILS ABSOLUTE AUTO 6.55 K/mm3 (1.96-9.15); NEUTROPHILS PERCENT AUTO 63 % (41-73); Platelet Count 233 K/mm3 (150-400); RDW Coefficient Variation 17.1 % (11.7-14.2); RDW Standard Deviation 58.5 fL (35.1-46.3); Red Blood Cell Count 2.94 M/mm3 (4.30-5.90); White Blood Cell Count 10.44 K/mm3 (4.00-11.30)
[2023-11-15 05:20] LABS: Bun/Creatinine Ratio 17.1 (12.0-20.0); Calcium, Blood 8.2 mg/dL (8.5-10.1); Creatinine, Blood 1.64 mg/dL (0.60-1.20); Potassium, Blood 4.5 mmol/L (3.5-5.5)
--- NOTE | 2023-11-15 05:50 | NUR ---
1900: ASSUMED CARE OF PT, REPORT RECEIVED FROM DAY SHIFT RN. PT IS FOUND TO BE LAYING IN BED ON HIS BACK WITH RLE ELEVATED ON A PILLOW. SALINE LOCKED AT THIS TIME. A/O, ABLE TO MAKE HIS NEEDS KNOWN. USING THE URINAL IN THE BED WITHOUT DIFFICULTY. SURGICAL DRESSING TO RLE IS C/D/I. MINIMAL OUTPUT FROM J/P DRAIN THIS SHIFT. NOT EMPTIED PER ORDERS TO EMPTY AT CERTAIN AMOUNT, SEE EMR ORDERS. BULB REMAIN DEPRESSED, NO APPARANT BLOCKAGE. PT MEDICATED FOR PAIN NEEDED X1 DURING THIS SHIFT. SAFETY MEASURES TAKEN, NEEDS ADDRESSED.
[2023-11-15 07:27] VITALS: BP 161/80
[2023-11-15] MEDS ORDERED: Acetaminophen325 M1 PO (10:23)
[2023-11-15] MEDS ORDERED: CEFTRIAXON1 GM/50 M1 IV (10:24)
[2023-11-15] MEDS ORDERED: OXYC5 PO (10:25)
[2023-11-15] MEDS ORDERED: DOCU100 PO (10:25)
[2023-11-15] MEDS ORDERED: VISBIOME 112.51 EACH PO (10:26)
[2023-11-15] MEDS ORDERED: SENN187 PO (10:26)
[2023-11-15] MEDS ORDERED: TRAM50 PO (10:46)
[2023-11-15 12:33] LABS: SARS-Cov-2 (COVID-19) PCR, MMC NEGATIVE (NEGATIVE)
[2023-11-15] MEDS ORDERED: Percocet 5-3251 EACH PO (13:17)
--- NOTE | 2023-11-15 16:05 | NUR ---
SHIFT/DISCHARGE SUMMARY Pt remains A&Ox3 this shift. VSS. Right foot pain managed with po meds. Foot elevated this shift. Tolerating meals, voiding per urinal. Meds given for BM. Wes SCOTT for keno terminal operator IV antibiotics. PIV teresa'd. Report called to Rudy at [facility] rehab. Pt to rehab with all belongings via van.
== END 2023-11-15 16:20 | DRG 854 ==
LOC: ER 13:29 → MEDS 17:06 → ENPENDDIS 11-15 10:11 → MEDS 11-15 16:20
PROVIDERS: Family Medicine; Physician Assistant; Podiatrist Foot & Ankle Surgery; ADMIT Internal Medicine
PROC: 3E03329 Introduction of Other Anti-infective into Peripheral Vein, Percutaneous Approach (ICD-10-PCS; 2023-11-09)
PROC: 0Y6M0ZC Detachment at Right Foot, Partial 3rd Ray, Open Approach (ICD-10-PCS; 2023-11-13)
PROC: 0Y6M0ZD Detachment at Right Foot, Partial 4th Ray, Open Approach (ICD-10-PCS; 2023-11-13)
PROC: 0Y6M0ZF Detachment at Right Foot, Partial 5th Ray, Open Approach (ICD-10-PCS; 2023-11-13)
PROC: 0Y6M0Z9 Detachment at Right Foot, Partial 1st Ray, Open Approach (ICD-10-PCS; principal; 2023-11-13 18:00)
DX: A41.9 Sepsis, unspecified organism (principal); E11.52 Type 2 diabetes mellitus with diabetic peripheral angiopathy with gangrene; I96 Gangrene, not elsewhere classified; E87.20 Acidosis, unspecified; M86.171 Other acute osteomyelitis, right ankle and foot; N17.9 Acute kidney failure, unspecified; E11.69 Type 2 diabetes mellitus with other specified complication; F17.210 Nicotine dependence, cigarettes, uncomplicated; Z66 Do not resuscitate; L97.519 Non-pressure chronic ulcer of other part of right foot with unspecified severity; E11.621 Type 2 diabetes mellitus with foot ulcer; I12.9 Hypertensive chronic kidney disease with stage 1 through stage 4 chronic kidney disease, or unspecified chronic kidney disease; E87.5 Hyperkalemia; N18.30 Chronic kidney disease, stage 3 unspecified; D63.1 Anemia in chronic kidney disease; E11.22 Type 2 diabetes mellitus with diabetic chronic kidney disease; F25.9 Schizoaffective disorder, unspecified; F15.11 Other stimulant abuse, in remission; Z89.421 Acquired absence of other right toe(s); Z88.0 Allergy status to penicillin; Z88.5 Allergy status to narcotic agent; Z88.8 Allergy status to other drugs, medicaments and biological substances; Z79.899 Other long term (current) drug therapy; Z79.811 Long term (current) use of aromatase inhibitors; Z79.84 Long term (current) use of oral hypoglycemic drugs; Z79.2 Long term (current) use of antibiotics; Z98.890 Other specified postprocedural states; Z79.82 Long term (current) use of aspirin; Z11.52 Encounter for screening for COVID-19
CPT/HCPCS: 36415; 71046; 80048; 80053; 82947; 85025; 86140; 87040; 88307; 88311; 93005; 93010; 96361; 96365; 97110; 97116; 97162; 99284-25; A9270; C1751; J0696; J1650; J1815; J2001; J2405; J2704; J3010; J3370; J7030; J7050; U0002

== ENCOUNTER → 2025-10-14 | Outpatient (CLI) | payer MEDICARE, OTHER ==
[~2025-10-14] MED LIST changes: +Acetaminophen325 M1 PO; +CEFTRIAXON1 GM/50 M1 IV; +DOCU100 PO; +Lisinopril10 MG PO; +OXYC5 PO; +Ondansetron Odt8 MG MM; +Percocet 5-3251 EACH PO; +SENN187 PO; +TRAM50 PO; +VISBIOME 112.51 EACH PO
[2025-10-20 10:08] LABS: Stool Occult Bld Immuno 1 Negative (NEGATIVE)
== END ==
LOC: LAB 16:29 → LAB SHORT 16:29
PROVIDERS: Student in an Organized Health Care Education/Training Program
DX: Z12.11 Encounter for screening for malignant neoplasm of colon (principal)
CPT/HCPCS: G0328